=== PATIENT | female | born 1935 | race Caucasian/White ===

== ENCOUNTER 2018-05-01 13:22 | Emergency (ER) | payer OTHER ==
[~2018-05-01] VITALS: Ht 154.9 cm; Wt 82.3 kg
[2018-05-01] MEDS ORDERED: IOHEXOL 300 MG/ML 100ML VIAL. IV ONE ×2 (14:15→14:45)
[2018-05-01] MEDS ORDERED: fentaNYL PF VIAL 100 MCG/2 ML VIAL IV ONE (14:15)
[2018-05-01] MEDS ORDERED: IV NORMAL SALINE 500ML BAG 500 ML IV ONE (14:15)
[2018-05-01] MEDS ORDERED: ONDANSETRON PF 4 MG/2 ML VIAL. IV ONE (14:15)
[2018-05-01 14:26] LABS: BASO % 1 % (0-3); EOS # 0.2 x10^3/uL (0.0-0.7); EOS % 3 % (0-3); HEMATOCRIT 35.2 % (36.0-47.0); LYMPH # 1.6 x10^3/uL (1.0-4.8); LYMPH % 23 % (24-48); MEAN CORPUSCULAR HEMOGLOBIN 33 pg (25-35); MEAN CORPUSCULAR HGB CONC 34 g/dL (31-37); MEAN CORPUSCULAR VOLUME 98 fL (79-100); MONO # 0.8 x10^3/uL (0.0-1.1); MONO % 12 % (0-9); NEUT # 4.4 x10^3uL (1.8-7.7); NEUT % 62 % (31-73); PLATELET COUNT 231 x10^3/uL (140-400); RED BLOOD COUNT 3.61 x10^6/uL (3.50-5.40); RED CELL DISTRIBUTION WIDTH 13.3 % (11.5-14.5); WHITE BLOOD COUNT 7.1 x10^3/uL (4.0-11.0)
[2018-05-01 14:31] LABS: BILIRUBIN,URINE NEGATIVE (NEG); CLARITY,URINE CLEAR; COLOR,URINE YELLOW; NITRITE,URINE NEGATIVE (NEG); PROTEIN,URINE NEGATIVE (NEG-TRACE); UROBILINOGEN,URINE 0.2 mg/dL (0.2 mg/dL)
[2018-05-01 14:35] LABS: CALCIUM 9.1 mg/dL (8.5-10.1); CREATININE 1.3 mg/dL (0.6-1.0); POTASSIUM 4.5 mmol/L (3.5-5.1)
[2018-05-01 14:40] LABS: ALBUMIN 3.7 g/dL (3.4-5.0); TOTAL BILIRUBIN 0.5 mg/dL (0.2-1.0); TOTAL PROTEIN 7.4 g/dL (6.4-8.2)
[2018-05-01] MEDS ORDERED: CONTRAST GIVEN. MC PRN (14:45)
[2018-05-01 15:05] LABS: BACTERIA,URINE 0 /HPF (0-FEW); HYALINE CASTS, URINE MANY /HPF; RBC,URINE 0 /HPF (0-2); SQUAMOUS EPITHELIAL CELL,UR MOD /LPF; WBC,URINE 20-40 /HPF (0-4)
--- NOTE | 2018-05-01 15:24 | PHYS DOC ---
Past Medical History Past Medical History: CAD, Hypertension Past Surgical History: Hysterectomy Additional Past Surgical Histo: pacemaker Alcohol Use: None Drug Use: None Adult General Chief Complaint Chief Complaint: ABDOMINAL PAIN HPI HPI 82-year-old female presents to ER with complaints of left-sided abdominal pain which is been ongoing for the past 2 days. Patient reports on Thursday her and her son drove from [place] for a here in town. Patient reports pain has been intermittent in nature however today pain was more constant and increased. Patient reports she has had nausea with 2 episodes of vomiting. Patient denies any diarrhea, fever or chills, or urinary symptoms. Patient reports she has had increased pain after meals. Patient reports she had regular bowel movement today denying any dark tarry or bloody stools. She denies any chest pain, palpitations, shortness of air, or abdominal distention. Review of Systems Review of Systems Constitutional: Denies fever or chills [] Eyes: Denies change in visual acuity, redness, or eye pain [] HENT: Denies nasal congestion or sore throat [] Respiratory: Denies cough or shortness of breath [] Cardiovascular: Nice chest pain or palpitations GI: Denies bloody stools or diarrhea. Reports left side abdominal pain with intermittent nausea and 2 episodes of vomiting : Denies dysuria or hematuria. Denies incontinence Musculoskeletal: Denies back pain or joint pain [] Integument: Denies rash or skin lesions [] Neurologic: Denies headache, focal weakness or sensory changes [] All other systems were reviewed and found to be within normal limits, except as documented in this note. Current Medications Current Medications Current Medications Medications (Trade) Dose Ordered Sig/Francisca Start Time Stop Time Status Last Admin Dose Admin Acetaminophen (Tylenol) 650 mg 1X ONCE 05/01/18 16:15 05/01/18 16:16 DC 05/01/18 16:15 650 MG Ceftriaxone Sodium 50 ml @ 100 mls/hr 1X ONCE 05/01/18 15:30 05/01/18 15:59 DC 05/01/18 15:30 100 MLS/HR Fentanyl Citrate (Fentanyl 2ml Vial) 25 mcg 1X ONCE 05/01/18 14:15 05/01/18 14:30 DC 05/01/18 14:52 25 MCG Info (CONTRAST GIVEN -- Rx MONITORING) 1 each PRN DAILY PRN 05/01/18 14:45 05/01/18 16:41 DC Iohexol (Omnipaque 300 Mg/ml) 75 ml 1X ONCE 05/01/18 14:45 05/01/18 14:46 DC Ondansetron HCl (Zofran) 4 mg 1X ONCE 05/01/18 14:15 05/01/18 14:30 DC 05/01/18 14:52 4 MG Sodium Chloride 500 ml @ 500 mls/hr 1X ONCE 05/01/18 14:15 05/01/18 15:14 DC 05/01/18 14:53 500 MLS/HR Allergies Allergies Allergies Coded Allergies Type Severity Reaction Last Updated Verified codeine Adverse Reaction Intermediate Nausea 05/01/18 Yes Physical Exam Physical Exam Constitutional: Well developed, well nourished, no acute distress, non-toxic appearance. [] HENT: Normocephalic, atraumatic, mucous membranes pink/moist, no oral exudates, nose normal. [] Eyes: Pupils equal, conjunctiva normal, no discharge. [] Neck: Normal range of motion, no tenderness, supple Cardiovascular:Heart rate regular rhythm, no murmur [] Lungs & Thorax: Bilateral breath sounds clear to auscultation [] Abdomen: Bowel sounds normal, soft/obese, tender to palp. lt upper quad/mid abd - no distention/rigidity, no masses, no pulsatile masses. [] Skin: Warm, dry, no erythema, no rash. [] Back: No tenderness, no CVA tenderness. [] Extremities: No tenderness, no cyanosis, no clubbing, ROM intact, 1+ nonpitting bilat. pedal edema- pt reports hx of edema. [] Neurologic: Alert and oriented X 3, normal motor function, normal sensory function, no focal deficits noted. [] Psychologic: Affect normal, judgement normal, mood normal. [] Current Patient Data Vital Signs Vital Signs Date Time Temp Pulse Resp B/P (MAP) Pulse Ox O2 Delivery O2 Flow Rate FiO2 05/01/18 16:21 97.8 66 16 136/74 (94) 98 Room Air 97.8 Lab Values Laboratory Tests Test 05/01/18 13:50 White Blood Count 7.1 x10^3/uL (4.0-11.0) Red Blood Count 3.61 x10^6/uL (3.50-5.40) Hemoglobin 12.0 g/dL (12.0-15.5) Hematocrit 35.2 % (36.0-47.0) L Mean Corpuscular Volume 98 fL (79-100) Mean Corpuscular Hemoglobin 33 pg (25-35) Mean Corpuscular Hemoglobin Concent 34 g/dL (31-37) Red Cell Distribution Width 13.3 % (11.5-14.5) Platelet Count 231 x10^3/uL (140-400) Neutrophils (%) (Auto) 62 % (31-73) Lymphocytes (%) (Auto) 23 % (24-48) L Monocytes (%) (Auto) 12 % (0-9) H Eosinophils (%) (Auto) 3 % (0-3) Basophils (%) (Auto) 1 % (0-3) Neutrophils # (Auto) 4.4 x10^3uL (1.8-7.7) Lymphocytes # (Auto) 1.6 x10^3/uL (1.0-4.8) Monocytes # (Auto) 0.8 x10^3/uL (0.0-1.1) Eosinophils # (Auto) 0.2 x10^3/uL (0.0-0.7) Basophils # (Auto) 0.0 x10^3/uL (0.0-0.2) Urine Collection Type Unknown Urine Color Yellow Urine Clarity Clear Urine pH 5.0 Urine Specific [place] 1.015 Urine Protein Negative mg/dL (NEG-TRACE) Urine Glucose (UA) Negative mg/dL (NEG) Urine Ketones (Stick) Negative mg/dL (NEG) Urine Blood Negative (NEG) Urine Nitrite Negative (NEG) Urine Bilirubin Negative (NEG) Urine Urobilinogen Dipstick 0.2 mg/dL (0.2 mg/dL) Urine Leukocyte Esterase Moderate (NEG) Urine RBC 0 /HPF (0-2) Urine WBC 20-40 /HPF (0-4) Urine Squamous Epithelial Cells Mod /LPF Urine Transitional Epithelial Cells Few /LPF Urine Bacteria 0 /HPF (0-FEW) Urine Hyaline Casts Many /HPF Urine Mucus Mod /LPF Sodium Level 140 mmol/L (136-145) Potassium Level 4.5 mmol/L (3.5-5.1) Chloride Level 101 mmol/L (98-107) Carbon Dioxide Level 29 mmol/L (21-32) Anion Gap 10 (6-14) Blood Urea Nitrogen 29 mg/dL (7-20) H Creatinine 1.3 mg/dL (0.6-1.0) H Estimated GFR (Cockcroft-Gault) 39.0 BUN/Creatinine Ratio 22 (6-20) H Glucose Level 122 mg/dL (70-99) H Calcium Level 9.1 mg/dL (8.5-10.1) Total Bilirubin 0.5 mg/dL (0.2-1.0) Aspartate Amino Transferase (AST) 19 U/L (15-37) Alanine Aminotransferase (ALT) 14 U/L (14-59) Alkaline Phosphatase 69 U/L (46-116) Troponin I Quantitative < 0.017 ng/mL (0.000-0.055) Total Protein 7.4 g/dL (6.4-8.2) Albumin 3.7 g/dL (3.4-5.0) Albumin/Globulin Ratio 1.0 (1.0-1.7) Lipase 161 U/L (73-393) Laboratory Tests 05/01/18 13:50 Laboratory Tests 05/01/18 13:50 EKG EKG EKG obtained 05/01/18 at [address] Bergman Sinus rhythm Rt BBB Rate 63 No acute STEMI Radiology/Procedures Radiology/Procedures PROCEDURE: CT ABDOMEN PELVIS WO CONTRAST CT scan of the abdomen and pelvis without contrast 05/01/2018 CLINICAL HISTORY: Left-sided abdominal pain. TECHNIQUE: Unenhanced, contiguous, 5 mm axial sections were obtained through the abdomen and pelvis. One or more of the following individualized dose reduction techniques were utilized for this study: 1. Automated exposure control. 2. Adjustment of the mA and/or kV according to patient size. 3. Use of iterative reconstruction technique. FINDINGS: No previous imaging studies are available for comparison. Images through the lung bases demonstrate mild to moderate cardiomegaly. Dependent subsegmental atelectasis is seen involving both lower lobes. A 4 mm noncalcified granuloma is seen involving the right lower lobe. Noncalcified nodular opacities are seen involving both lower lobes. These measure 3 to 7 mm in size. A 6 mm oval-shaped opacity is seen within the right middle lobe. The appearance of these opacities is nonspecific. They could represent noncalcified granulomas. Metastatic disease is not excluded. A 5 mm low-attenuation lesion seen within the right lower liver. This lkely represents a hepatic cyst. The spleen, pancreas, and adrenal glands are within normal limits. Low-attenuation lesions are seen involving both kidneys measure 5 mm 2.4 cm in size. This likely represents cysts. A 1 cm calcification is seen within the inferior aspect of the left kidney. Atherosclerotic calcification abdominal aorta is seen. The abdominal aorta tapers normally. Surgical clips are seen within the gallbladder fossa consistent with a cholecystectomy. Air and stool seen throughout the colon Images through pelvis demonstrate the urinary bladder distended with urine. Calcifications are seen within the pelvis consistent with phleboliths. No free fluid is seen. Degenerative changes are seen involving the lower thoracic and throughout the lumbar spine and both hips. IMPRESSION: No acute abnormality is seen. Electronically signed by: Scout Arceo MD (05/01/2018 3:47 PM) [facility] [place] and SIGNED BY: SCOUT ARCEO MD DATE: 05/01/18 1539 Course & Med Decision Making Course & Med Decision Making Pertinent Labs and Imaging studies reviewed. (See chart for details) 1515: Patient returned from CT and reports she has had some improvement in symptoms. Discussed UA results with moderate leukocytes negative nitrates and blood-Micro with 20-40 WBCs. WBCs on labs normal limits at 7.1; BUN/Cr 29/1.3 which wouldn't allow for CT contrast so done without; EKG with no acute ST elevation or STEMI and troponin <0.017. Patient will be given dose of Rocephin 1 g IV while in the ER. 1604: Discussed CT results with patient and her family- no acute findings- did discuss lung opacities seen on imaging and need for f/u with PCP for further eval/continued monitoring. Patient at this time is denying any nausea and reports she has had no vomiting episodes while in the ER. ET results with no acute findings. Patient reports she is feeling better than at time of arrival. Patient does continue to have left-sided abdominal pain which she reports increases with palpation. Will provide patient with dose of Tylenol prior to discharge. Admission was offered for further care and evaluation however patient is wanting to be discharged home as she plans to travel back to [facility]. Discussed renal function results from lab work and need to have rechecked with PCP. Patient advised on signs and symptoms to stop and seek medical reevaluation for on trip home and patient to follow-up with primary care physician in next 1-2 days for reevaluation. Discharge instructions were discussed. Will provide prescription for Zofran ODT and small quantity of [place] tablets as patient plans to travel back home tonight- with education on meds. Will provide Rx for Keflex for UTI with discharge paperwork. Dragon Disclaimer Dragon Disclaimer This electronic medical record was generated, in whole or in part, using a voice recognition dictation system. Departure Departure Impression: Primary Impression: Abdominal pain Additional Impressions: UTI (urinary tract infection) Nausea and vomiting Disposition: HOME, SELF-CARE Condition: STABLE Referrals: UNKNOWN PCP NAME (PCP) Patient Instructions: Abdominal Pain, Nausea and Vomiting, Urinary Tract Infection Additional Instructions: As discussed you need to follow-up with your primary care physician when he returned home and the next 1-2 days. You were diagnosed with a urinary tract infection you should increase water intake and take Keflex prescription as prescribed. Tylenol as directed on container for pain control and less taking prescribed [place] tablet if pain increases. Avoid extra acetaminophen/Tylenol intake if taking [place] prescription. If symptoms worsen or with any concerns while traveling back home- stop at closest hospital for re-evaluation. Scripts Cephalexin (KEFLEX) 500 Mg Capsule 1 CAP PO BID, #10 CAP 0 Refills Prov: GUICHO CARBALLO APRN 05/01/18 Hydrocodone/Apap 5-325 (NORCO 5-325 TABLET) 1 Each Tablet 1 TAB PO PRN Q6HRS PRN for PAIN, #8 TAB 0 Refills Prov: GUICHO CARBALLO APRN 05/01/18 Ondansetron (ZOFRAN ODT) 4 Mg Tab.rapdis 1 TAB SL Q8HRS PRN for NAUSEA, #10 TAB 0 Refills Prov: GUICHO CARBALLO APRN 05/01/18 Problem Qualifiers GUICHO CARBALLO APRN May 01, 2018 15:24
--- NOTE | 2018-05-01 15:50 | RAD ---
CT scan of the abdomen and pelvis without contrast 05/01/2018 CLINICAL HISTORY: Left-sided abdominal pain. TECHNIQUE: Unenhanced, contiguous, 5 mm axial sections were obtained through the abdomen and pelvis. One or more of the following individualized dose reduction techniques were utilized for this study: 1. Automated exposure control. 2. Adjustment of the mA and/or kV according to patient size. 3. Use of iterative reconstruction technique. FINDINGS: No previous imaging studies are available for comparison. Images through the lung bases demonstrate mild to moderate cardiomegaly. Dependent subsegmental atelectasis is seen involving both lower lobes. A 4 mm noncalcified granuloma is seen involving the right lower lobe. Noncalcified nodular opacities are seen involving both lower lobes. These measure 3 to 7 mm in size. A 6 mm oval-shaped opacity is seen within the right middle lobe. The appearance of these opacities is nonspecific. They could represent noncalcified granulomas. Metastatic disease is not excluded. A 5 mm low-attenuation lesion seen within the right lower liver. This lkely represents a hepatic cyst. The spleen, pancreas, and adrenal glands are within normal limits. Low-attenuation lesions are seen involving both kidneys measure 5 mm 2.4 cm in size. This likely represents cysts. A 1 cm calcification is seen within the inferior aspect of the left kidney. Atherosclerotic calcification abdominal aorta is seen. The abdominal aorta tapers normally. Surgical clips are seen within the gallbladder fossa consistent with a cholecystectomy. Air and stool seen throughout the colon Images through pelvis demonstrate the urinary bladder distended with urine. Calcifications are seen within the pelvis consistent with phleboliths. No free fluid is seen. Degenerative changes are seen involving the lower thoracic and throughout the lumbar spine and both hips. IMPRESSION: No acute abnormality is seen. Electronically signed by: Scout Day MD (05/01/2018 3:47 PM) [facility] [place]
[2018-05-01] MEDS ORDERED: ACETAMINOPHEN 325 MG TABLET. PO ONE (16:15)
[2018-05-01] MEDS ORDERED: ONDA4TAB10 SL (16:16)
[2018-05-01] MEDS ORDERED: HYDR-971 PO (16:16)
[2018-05-01] MEDS ORDERED: CEPH-264 PO (16:17)
[2018-05-01 16:21] VITALS: BP 136/74
--- NOTE | 2018-05-01 17:27 | EKG ---
[facility] [address] [place] [address] Test Date: 2018-05-01 Test Time: 14:20:37 Pat Name: JANAE GORDON Department: Room: Gender: F Rod Pointer: : 1935 Requested By: GUICHO CARBALLO Order Number: [id number] Reading MD: James Monterroso MD Measurements Intervals [place] Rate: 63 P: 59 VA: 150 QRS: 22 QRSD: 128 T: 59 QT: 414 QTc: 427 Interpretive Statements SINUS RHYTHM RIGHT BUNDLE BRANCH BLOCK Electronically Signed On 05-03-2018 11:34:09 CDT by James Monterroso MD
== END 2018-05-01 16:35 | disposition home or self-care (01) ==
LOC: ER 13:22
DX: N39.0 Urinary tract infection, site not specified (principal); I10 Essential (primary) hypertension; I25.10 Atherosclerotic heart disease of native coronary artery without angina pectoris; Z90.710 Acquired absence of both cervix and uterus; Z95.0 Presence of cardiac pacemaker; Z88.5 Allergy status to narcotic agent
CPT/HCPCS: 36415; 74176; 80053; 81001; 83690; 84484; 85025; 93005; 96361; 96365; 96375; 99285; J0690; J2405; J3010; J7040; 87086